=== PATIENT | male | born 1995 | race Caucasian/White ===

== ENCOUNTER 2019-04-17 16:46 | Emergency (ER) | payer OTHER ==
[2019-04-17 17:26] VITALS: BMI 22.6
--- NOTE | 2019-04-17 17:52 | PDOC ---
History of Present Illness - General Chief Complaint: Injury Stated Complaint: INJURED FINGER Time Seen by Provider: 04/17/19 17:20 - History of Present Illness Initial Comments: 04/17/19 17:53 The patient is a 23 year old right hand dominant male with no significant PMH who presents for evaluation of a left index finger injury. 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 He reports decreased sensation and tingling to the finger but otherwise denies any weakness or other injuries. He otherwise denies fevers , chills, SOB, Chest pain, nausea, vomiting, or abdominal pain. Past History - Past Medical History Allergies/Adverse Reactions: Allergies Allergy/AdvReac Type Severity Reaction Status Date / Time No Known Allergies Allergy Verified 04/17/19 17:05 Home Medications: Ambulatory Orders Cephalexin Monohydrate [Keflex -] 500 mg PO BID #10 capsule 04/17/19 COPD: No - Immunization History Immunization Up to Date: No - Suicide/Smoking/Psychosocial Hx Smoking History: Never smoked Have you smoked in the past 12 months: No Information on smoking cessation initiated: No Hx Alcohol Use: No Drug/Substance Use Hx: No Review of Systems - Review of Systems Comments:: 04/17/19 17:56 Constitutional: No fevers, chills, fatigue, malaise HEENT: No Rhinorrhea, nasal congestion, visual changes Cardiovascular: No chest pain, syncope, palpitations, lightheadedness Respiratory: No Cough, SOB, Hemoptysis, Gastrointestinal: No Abdominal pain, Nausea, Vomiting, Constipation, Diarrhea, Melena Genitourinary: No Dysuria, Frequency, Urgency, Hesitancy, Hematuria, Flank pain Musculoskeletal: Left 2nd digit laceration. No Myalgia, arthralgia Skin: No rashes, itching, bruising, pallor Neurologic: No Headache, Dizziness, Numbness, Weakness, or Tingling Psychiatric: No Hallucinations. No SI or HI *Physical Exam - Vital Signs Last Vital Signs Temp Pulse Resp BP Pulse Ox 98.0 F 78 16 130/60 100 04/17/19 16:55 04/17/19 16:55 04/17/19 16:55 04/17/19 16:55 04/17/19 16:55 - Physical Exam Comments: 04/17/19 17:57 General Appearance: Nourished. No Apparent Distress HEENT: No Pharyngeal Erythema, Tonsillar Exudate, Tonsillar Erythema Neck: No Cervical Lymphadenopathy Respiratory/Chest: Lungs Clear, Normal Breath Sounds. No Crackles, Rales, Rhonchi, Wheezing Cardiovascular: Regular Rhythm, Regular Rate. No Murmur, Gallops, Rubs Gastrointestinal/Abdominal: Normal Bowel Sounds, Soft. No Guarding, Rebound, Tenderness Musculoskeletal: No CVA Tenderness Extremity: Circumferential laceration to the distal portion of the left 2nd digit. Decreased sensation to light touch and temperature. Normal Capillary Refill Integumentary: Normal Color, Dry, Warm Neurologic: Fully Oriented, Alert, Normal Mood/Affect, Normal Response, Procedures - Laceration/Wound Repair Left Hand 2nd digit Wound Length: 2.6 to 5.0 cm Wound Explored: clean, no foreign body present Wound's Depth, Shape: superficial, irregular Irrigated w/ Saline: Yes Anesthesia: 1% Lidocaine Wound Debrided: minimal Wound Repaired With: Sutures Suture Size/Type: 5:0, nylon Number of Sutures: 17 Layer Closure: Yes Sterile Dressing Applied: Yes Splint Applied: Yes Type of Splint Applied: Finger ED Treatment Course - LABORATORY CBC & Chemistry Diagram: 04/17/19 18:15 04/17/19 18:22 Medical Decision Making - Medical Decision Making 04/17/19 17:58 The patient is a 23 year old right hand dominant male with no significant PMH who presents for evaluation of a left index finger injury. Differential includes but is not limited to: Fracture, contusion, Ligamentous injury, laceration. The patient was an uptraige from fast track. Plain films were obtained of the digit which demonstrated a comminuted fracture of the distal phalange of the 2nd left digit. Given the patient's overlying laceration, it is likely the patient has an open fracture. We will consult with our orthopedic surgeons regarding further management of the patient. We will continue to monitor and reassess while here in the ED. 04/17/19 19:36 We discussed the case with Orthopedics ALEIDA Dunlap who recommended closure of the wound, treatment with antibiotics, and close followup in the office tomorrow after splinting. We obtained a cbc, cmp, coags which were unremarkable and treated the patient with 1 gm ancef and tetanus here in the ED. The patient's wound was successfully closed with 17 5-0 nylon sutures after extensive irrigation and a splint was applied to the finger. We are comfortable discharging the patient home in stable condition with orthopedic follow up tomorrow on keflex for antibiotic coverage. Patient made aware of impression and plan, return precautions discussed including but not limited to worsening pain or symptoms, fevers, or signs of infection, chest pain, respiratory distress, inability to tolerate oral intake, dehydration, syncope, or neurologic changes. The patient is to follow up with credit card specialist as recommended tomorrow, follow up information provided and the patient will call for an appointment. The patient is to take medications as instructed for duration of time and continue with supportive care, avoid triggers and precipitants. Patient is safe for outpatient follow-up. *DC/Admit/Observation/Transfer Diagnosis at time of Disposition: Laceration Finger fracture, left Qualifiers: Encounter type: initial encounter Finger: index finger Fracture type: open Phalanx: distal Fracture alignment: displaced Qualified Code(s): S62.631B - Displaced fracture of distal phalanx of left index finger, initial encounter for open fracture - Discharge Dispostion Disposition: HOME Condition at time of disposition: Stable Decision to Admit order: No - Prescriptions Prescriptions: Cephalexin Monohydrate [Keflex -] 500 mg PO BID #10 capsule - Referrals Referrals: Leonid Curtis MD [Staff Physician] - - Patient Instructions Printed Discharge Instructions: DI for Laceration Repair, DI for Finger Fracture Additional Instructions: 1) Please follow-up with your primary care doctor in the next 2-3 days. Please call tomorrow to schedule a follow up appointment. If you cannot follow up with your doctor within 1 week please return to the Emergency Department for any urgent issues. 2) Your laboratory results were normal here in the ER. Your X-rays show that you have a fracture of your finger. You are to follow up in the orthopedic radiologic technologist's office tomorrow at Noon. Please call in the morning to confirm your appointment. Your laceration was repaired with 17 stitches and should remain in place for 7 days after which you may go to your regular doctor or the ER to have them removed. Please keep the wound dry for 24 hours after which you may let soap and water gently run over the wound. Please keep your finger in the splint until you follow up with the orthopedic radiologic technologist. 3) If you have any worsening of symptoms or any other concerns please return to the ER immediately. Return if worsening symptoms including fevers, headache, vomiting, visual or hearing disturbances, abdominal pain, chest pain, shortness of breath, syncope, dehydration, inability to take things by mouth/vomiting, altered mental status, or worsening concerning symptoms. 4) Please continue taking your home medications as directed. Your medications on discharge include Keflex. You may use tylenol for pain control at home every 6 hours. Side effects may include upset stomach, abdominal pain, vomiting , or diarrhea. Do not drink alcohol with your medications. - Post Discharge Activity
[2019-04-17] MEDS ORDERED: CEFAZOLIN 1 GM in DEXTROSE 5%-WATER - 50 ML IVPB ONE (18:08)
[2019-04-17] MEDS ORDERED: DIPHTH,PERTUSS(ACELL),TET 0.5 ML DISP.SYRIN IM ONE ×2 (18:08→18:24)
--- NOTE | 2019-04-17 18:11 | PDOC ---
Documentation entered by Eliud Prater SCRIBE, acting as scribe for Marisela Jeffers MD. Marisela Jeffers MD: This documentation has been prepared by the scribe, Eliud Prater SCRIBE, under my direction and personally reviewed by me in its entirety. I confirm that the documentation accurately reflects all work, treatment, procedures, and medical decision making performed by me. Attending Attestation - Resident Resident Name: Carson Lopez - ED Attending Attestation I have performed the following: I have examined & evaluated the patient, The case was reviewed & discussed with the resident, I agree w/resident's findings & plan, Exceptions are as noted - HPI HPI: 04/17/19 18:27 The patient is a 23 year old male with no significant past medical history who presents to the emergency department with a left hand injury earlier today. 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 The patient states that he currently has no pain. He denies any numbness weakness or tingling sensation. It is noted that the patient is right handed. He denies any other symptoms or complaints. - Physicial Exam PE: GENERAL: Awake, alert, and fully oriented, in no acute distress HEAD: No signs of trauma EYES: PERRLA, EOMI, sclera anicteric, conjunctiva clear EXTREMITIES: Normal range of motion, no edema. No clubbing or cyanosis. No cords, erythema, or tenderness NEUROLOGICAL: Cranial nerves II through XII grossly intact. Normal speech, normal gait. Motor intact. Sensation absent to tip of L index finger SKIN: Warm, Dry, normal turgor, no rashes. +Multiple lacerations to the L index finger, slight oozing of blood - Medical Decision Making Pt presents with open fracture of L index finger. Will d/w hand. Will cover with ancef. Will give tdap booster.
[2019-04-17] MEDS ORDERED: CEFAZOLIN 1 GM/D5W 1 GM/50 ML BAG ONE (18:24)
[2019-04-17 18:59] LABS: ALBUMIN 4.4 g/dl (3.4-5.0); BILIRUBIN,TOTAL 0.4 mg/dL (0.2-1); BLOOD UREA NITROGEN 14.2 mg/dL (7-18); CREATININE 0.9 mg/dL (0.55-1.3); POTASSIUM 3.8 mmol/L (3.5-5.1); TOT PROT 7.8 g/dl (6.4-8.2)
[2019-04-17 19:10] LABS: BASO % 0.4 % (0-2.0); EOS % 1.1 % (0-4.5); HEMOGLOBIN 15.2 GM/dL (11.7-16.9); LYMPH % 22.8 % (8-40); MCHC 33.1 g/dl (32.0-35.9); MEAN CELL VOLUME 90.6 fl (80-96); MEAN PLT VOLUME 9.1 fl (7.5-11.1); MONO % 9.6 % (3.8-10.2); NEUT % 66.1 % (42.8-82.8); RBC 5.07 M/mm3 (4.00-5.60); RDW 13.2 % (11.9-15.9); WHITE BLOOD COUNT 7.1 K/mm3 (4.0-10.0)
[2019-04-17 19:15] LABS: PLATELET COUNT 178 K/MM3 (134-434)
[2019-04-17 19:16] LABS: INR 0.97 (0.83-1.09); PROTHROMBIN TIME (PATIENT) 11.5 SEC (9.7-13.0)
[2019-04-17 19:19] LABS: ACTIVATED PTT 32.8 SECONDS (25.2-36.5)
[2019-04-17 20:01] VITALS: BP 123/65; PULSE 64; TEMP 98.6
== END 2019-04-17 20:10 | disposition home or self-care (01) ==
LOC: JER 16:46 → JERFT 16:46 → JER 20:10
PROC: 3E03329 Introduction of Other Anti-infective into Peripheral Vein, Percutaneous Approach (ICD-10-PCS; principal; 2019-04-17)
PROC: 3E0234Z Introduction of Serum, Toxoid and Vaccine into Muscle, Percutaneous Approach (ICD-10-PCS; 2019-04-17)
PROC: 0JQK0ZZ Repair Left Hand Subcutaneous Tissue and Fascia, Open Approach (ICD-10-PCS; 2019-04-17)
PROC: 2W3KX1Z Immobilization of Left Finger using Splint (ICD-10-PCS; 2019-04-17)
DX: S62.631B Displaced fracture of distal phalanx of left index finger, initial encounter for open fracture (principal); W31.82XA Contact with other commercial machinery, initial encounter; Y93.89 Activity, other specified; Y92.512 Supermarket, store or market as the place of occurrence of the external cause; Y99.0 Civilian activity done for income or pay
CPT/HCPCS: 36415; 73140-TC-LT-FY; 80053; 85025; 85610; 85730; 90715; 99283-25

== ENCOUNTER 2024-09-02 09:27 | Emergency (ER) | payer OTHER ==
[2024-09-02 09:34] VITALS: BP 103/65; PULSE 88; RESP 16; TEMP 98.4; BMI 28.1
[2024-09-02] MEDS ORDERED: ACETAMINOPHEN 500 MG TABLET (FP) ONE (10:25)
[2024-09-02] MEDS: ACETAMINOPHEN 500 MG TABLET (FP) PO ONE (10:29)
[2024-09-02] MEDS ORDERED: LIDOCAINE 4% PATCH TP ONE (10:37)
[2024-09-02] MEDS: LIDOCAINE 5% TOPICAL PATCH TP ONE (10:45)
[2024-09-02] MEDS ORDERED: LIDOCAINE PATCH REMOVAL MC SCH (22:00)
== END 2024-09-02 13:35 | disposition home or self-care (01) ==
LOC: JERFT 09:27
DX: M54.50 Low back pain, unspecified (principal); M25.512 Pain in left shoulder; V49.40XA Driver injured in collision with unspecified motor vehicles in traffic accident, initial encounter; Y92.410 Unspecified street and highway as the place of occurrence of the external cause
CPT/HCPCS: 72070-TC-FY; 72100-TC-FY; 73030-TC-LT-FY; 99284-25